=== PATIENT | female | born 1995 | race Caucasian/White ===

== ENCOUNTER 2017-11-06 13:17 | Emergency (ER) | payer OTHER ==
[~2017-11-06] VITALS: Ht 157.5 cm; Wt 49.9 kg
--- NOTE | ~2017-11-06 | EKG ---
[place] [address] [address] [facility] [place] [address] ELECTROCARDIOGRAM REPORT Name: SYLVESTER VALERA Room #: REG RADHA Goodwin#: [id number] Admission: 11/06/17 Attend Phys: Discharge: Date of : [birth year] Report #: [id number] THIS REPORT FOR: //name// [facility] ED Test Date: 2017-11-06 Test Time: 13:40:11 Pat Name: SYLVESTER VALERA Department: Room: Gender: F Director Of Quality: DENILSON : 1995 Requested By: Val Weiss Order Number: [id number] MD: Immanuel Meng Measurements Intervals Wrens Rate: 81 P: 75 NC: 139 QRS: 55 QRSD: 75 T: 67 QT: 371 QTc: 431 Interpretive Statements Sinus rhythm Normal tracing No previous ECG available for comparison Electronically Signed On 11-06-2017 15:51:24 CDT by Immanuel Meng [email or web address] <ELECTRONICALLY SIGNED> By: Immanuel Meng MD, [facility] 11/06/17 1551 1340 1340 Immanuel Meng MD, FACC /EPI
[2017-11-06] MEDS ORDERED: CELEXA20 MG PO (13:49)
[2017-11-06] MEDS ORDERED: BUSPIRONE HCL10 MG PO (13:50)
[2017-11-06 14:23] LABS: ABSOLUTE NEUTROPHILS 5.3 thou/uL (1.4-8.2); BASOPHILS 0.8 % (0.0-2.0); EOSINOPHILS 0.6 % (0.0-3.0); HEMATOCRIT 42.5 % (37.0-47.0); HEMOGLOBIN 14.5 gm/dL (12.0-15.0); LYMPHOCYTES 21.2 % (24.0-44.0); MCH 31.7 pg (26.0-34.0); MCHC 34.2 g/dL (28.0-37.0); MCV 92.6 fL (80.0-100.0); MONOCYTES 10.6 % (1.0-8.0); PLATELET COUNT 247 thou/uL (150-400); POLYS 66.8 % (36.0-66.0); RBC 4.58 mil/uL (4.20-5.00); RDW 12.4 % (10.5-14.5); WBC 7.9 thou/uL (4.0-11.0)
[2017-11-06 14:33] LABS: ANION GAP 9 mmol/L (7-16); BUN 16 mg/dL (7-18); CALCIUM 9.2 mg/dL (8.5-10.1); CHLORIDE 104 mmol/L (98-107); CO2 24 mmol/L (21-32); CREATININE 0.7 mg/dL (0.6-1.0); GLUCOSE 84 mg/dL (74-106); POTASSIUM 3.5 mmol/L (3.5-5.1); SODIUM 137 mmol/L (136-145)
[2017-11-06 14:41] LABS: ALBUMIN 4.3 g/dL (3.4-5.0); SALICYLATE < 2.8 mg/dL (2.8-20.0); SGOT 19 U/L (15-37); SGPT 17 U/L (30-65); TOTAL BILIRUBIN 0.8 mg/dL (<0.1-1.0); TROPONIN-I < 0.04 ng/mL (<0.06)
[2017-11-06 15:13] LABS: AMP/METHAMP POSITIVE (Negative); BARBITURATES Negative (Negative); BENZODIAZEPINES Negative (Negative); COCAINE Negative (Negative); METHADONE Negative (Negative); OPIATES Negative (Negative); PCP Negative (Negative)
[2017-11-06 17:28] VITALS: BP 118/56
== END 2017-11-06 17:29 | disposition home or self-care (01) ==
LOC: ER 13:17
PROVIDERS: Physician Assistant
DX: R07.9 Chest pain, unspecified (principal); F22 Delusional disorders; F15.10 Other stimulant abuse, uncomplicated